=== PATIENT | male | born 1935 | race Caucasian/White ===

== ENCOUNTER → 2020-08-16 11:37 | Outpatient (CLI) | payer MEDICARE, OTHER, SELFPAY ==
[2020-08-16 20:34] LABS: Alanine Aminotransferase 26 IU/L (<50); Albumin 4.2 g/dL (3.5-5.0); Albumin Globulin Ratio 1.5 (1.0-2.8); Alkaline Phosphatase 56 U/L (38-126); Aspartate Aminotransferase 31 IU/L (17-59); BUN Creatinine Ratio 13.3 (6-22); Bilirubin Total 0.9 mg/dL (0.2-1.3); Blood Urea Nitrogen 17 mg/dL (9-20); Calcium 9.6 mg/dL (8.4-10.2); Carbon Dioxide 25 mmol/L (22-32); Chloride 102 mmol/L (98-107); Cholesterol 221 mg/dL (140-199); Estimated Glomerular Filt Rate 53.8 mL/min (>60); Globulin 2.8 g/dL (1.7-4.1); Glucose 108 mg/dL (80-110); HDL Cholesterol 68 mg/dL (40-60); HEMOLYSIS < 15 (0-50); LDL Cholesterol Calculated 135 mg/dL (<100); Potassium 4.6 mmol/L (3.4-5.1); Sodium 136 mmol/L (137-145); Triglycerides 88 mg/dL (35-150)
[2020-08-16 20:37] LABS: Add Manual Diff / Slide Review NO; Basophils Absolute Auto 100 /uL (0-100); Basophils Percent Auto 0.7 % (0-2); Eosinophils Absolute Auto 300 /uL (0-450); Eosinophils Percent Auto 3.6 % (2-4); Hematocrit 48.6 % (41-53); Hemoglobin 16.5 g/dL (13.5-17.5); Lymphocytes Absolute Auto 1900 /uL (1100-4500); Lymphocytes Percent Auto 26.1 % (25-40); Mean Corpuscular Hemoglobin 32.1 PG (26-34); Mean Corpuscular Volume 94.6 fL (80-100); Monocytes Absolute Auto 800 /uL (0-900); Monocytes Percent Auto 11.4 % (3-14); Neutrophils Absolute Auto 4300 /uL (1500-7000); Neutrophils Percent Auto 58.2 % (50-75); Platelet Count 147 X10^3/uL (150-400); Red Blood Cell Count 5.14 X10^6/uL (4.5-5.9); Red Cell Distribution Width 13.1 % (11.6-14.8); White Blood Cell Count 7.3 X10^3/uL (4.5-11.0)
[2020-08-16 21:04] LABS: Thyroid Stimulating Hormone 1.25 uIU/mL (0.47-4.68)
== END ==
PROVIDERS: Internal Medicine Cardiovascular Disease; Family Provider Internal Medicine Cardiovascular Disease
DX: E78.5 Hyperlipidemia, unspecified (principal); I10 Essential (primary) hypertension; I48.91 Unspecified atrial fibrillation
CPT/HCPCS: 80053; 80061; 84443; 85025

== ENCOUNTER → 2021-10-05 11:00 | Outpatient (CLI) | payer MEDICARE, SELFPAY ==
[2021-10-06 18:18] LABS: Add Manual Diff / Slide Review NO; Basophils Absolute Auto 100 /uL (0-100); Eosinophils Absolute Auto 200 /uL (0-450); Eosinophils Percent Auto 2.8 % (2-4); Hematocrit 45.6 % (41-53); Hemoglobin 15.9 g/dL (13.5-17.5); Lymphocytes Absolute Auto 1900 /uL (1100-4500); Lymphocytes Percent Auto 26.3 % (25-40); Mean Corpuscular Hemoglobin 32.5 PG (26-34); Mean Corpuscular Volume 92.9 fL (80-100); Monocytes Absolute Auto 700 /uL (0-900); Neutrophils Absolute Auto 4400 /uL (1500-7000); Neutrophils Percent Auto 59.9 % (50-75); Platelet Count 149 X10^3/uL (150-400); Red Blood Cell Count 4.91 X10^6/uL (4.5-5.9); White Blood Cell Count 7.3 X10^3/uL (4.5-11.0)
[2021-10-06 18:37] LABS: Alanine Aminotransferase 27 IU/L (<50); Albumin Globulin Ratio 1.5 (1.0-2.8); Alkaline Phosphatase 49 U/L (38-126); Aspartate Aminotransferase 27 IU/L (17-59); BUN Creatinine Ratio 17.9 (6-22); Blood Urea Nitrogen 24 mg/dL (9-20); Calcium 9.2 mg/dL (8.4-10.2); Carbon Dioxide 19 mmol/L (22-32); Chloride 104 mmol/L (98-107); Cholesterol 125 mg/dL (140-199); Estimated Glomerular Filt Rate 53 mL/min (>60); Globulin 2.6 g/dL (1.7-4.1); Glucose 104 mg/dL (80-110); HDL Cholesterol 46 mg/dL (40-60); HEMOLYSIS < 15 (0-50); LDL Cholesterol Calculated 65 mg/dL (<100); Potassium 4.6 mmol/L (3.4-5.1); Sodium 136 mmol/L (137-145); Total Protein 6.6 g/dL (6.3-8.2); Triglycerides 71 mg/dL (35-150)
[2021-10-06 18:49] LABS: Hemoglobin A1C% w Est Avg Glu 5.8 % (4.0-6.0)
[2021-10-06 19:08] LABS: Thyroid Stimulating Hormone 1.01 uIU/mL (0.47-4.68)
== END ==
PROVIDERS: Internal Medicine Cardiovascular Disease; Family Provider Internal Medicine Cardiovascular Disease; PCP Family Medicine
DX: Z79.899 Other long term (current) drug therapy (principal)
CPT/HCPCS: 80053; 80061; 83036; 84443; 85025

== ENCOUNTER → 2021-11-07 07:38 | Outpatient (CLI) | payer MEDICARE, SELFPAY ==
[2021-11-07 20:25] LABS: Add Manual Diff / Slide Review NO; Basophils Absolute Auto 100 /uL (0-100); Basophils Percent Auto 0.9 % (0-2); Eosinophils Absolute Auto 400 /uL (0-450); Eosinophils Percent Auto 3.8 % (2-4); Hematocrit 46.2 % (41-53); Lymphocytes Absolute Auto 2200 /uL (1100-4500); Lymphocytes Percent Auto 22.5 % (25-40); Mean Corpuscular HGB Conc 34.6 % (30-36); Mean Corpuscular Volume 92.4 fL (80-100); Monocytes Absolute Auto 900 /uL (0-900); Neutrophils Absolute Auto 6200 /uL (1500-7000); Neutrophils Percent Auto 63.8 % (50-75); Platelet Count 145 X10^3/uL (150-400); Red Blood Cell Count 5.01 X10^6/uL (4.5-5.9); Red Cell Distribution Width 13.2 % (11.6-14.8); White Blood Cell Count 9.7 X10^3/uL (4.5-11.0)
[2021-11-07 20:28] LABS: Blood Urea Nitrogen 21 mg/dL (9-20); Carbon Dioxide 25 mmol/L (22-32); Chloride 103 mmol/L (98-107); Estimated Glomerular Filt Rate 54 mL/min (>60); Glucose 99 mg/dL (80-110); HEMOLYSIS < 15 (0-50); Potassium 4.8 mmol/L (3.4-5.1); Sodium 136 mmol/L (137-145)
[2021-11-07 21:49] LABS: COVID19 - ORCAS (NP or Nasal) Negative (Negative)
== END ==
PROVIDERS: Family Provider Internal Medicine Cardiovascular Disease; PCP Family Medicine; Visit Provider Family Medicine
DX: I25.810 Atherosclerosis of coronary artery bypass graft(s) without angina pectoris (principal); Z01.812 Encounter for preprocedural laboratory examination; Z20.822 Contact with and (suspected) exposure to COVID-19
CPT/HCPCS: 80048; 85025; C9803; U0003

== ENCOUNTER → 2022-09-13 11:23 | Outpatient (CLI) | payer MEDICARE, SELFPAY ==
[2022-09-13 20:23] LABS: Alanine Aminotransferase 26 IU/L (<50); Albumin 3.7 g/dL (3.5-5.0); Albumin Globulin Ratio 1.3 (1.0-2.8); Alkaline Phosphatase 63 U/L (38-126); Aspartate Aminotransferase 26 IU/L (17-59); Bilirubin Total 0.8 mg/dL (0.2-1.3); Blood Urea Nitrogen 24 mg/dL (9-20); Calcium 8.7 mg/dL (8.4-10.2); Carbon Dioxide 23 mmol/L (22-32); Chloride 105 mmol/L (98-107); Cholesterol 122 mg/dL (140-199); Estimated Glomerular Filt Rate 56 mL/min (>60); Globulin 2.8 g/dL (1.7-4.1); Glucose 112 mg/dL (80-110); HDL Cholesterol 44 mg/dL (40-60); HEMOLYSIS < 15 (0-50); LDL Cholesterol Calculated 65 mg/dL (<100); Potassium 4.8 mmol/L (3.4-5.1); Sodium 134 mmol/L (137-145); Total Protein 6.5 g/dL (6.3-8.2); Triglycerides 63 mg/dL (35-150)
[2022-09-13 20:30] LABS: Add Manual Diff / Slide Review NO; Basophils Absolute Auto 100 /uL (0-100); Eosinophils Absolute Auto 200 /uL (0-450); Eosinophils Percent Auto 3.2 % (2-4); Hematocrit 45.7 % (41-53); Hemoglobin 15.9 g/dL (13.5-17.5); Lymphocytes Absolute Auto 1900 /uL (1100-4500); Lymphocytes Percent Auto 26.1 % (25-40); Mean Corpuscular HGB Conc 34.8 % (30-36); Mean Corpuscular Hemoglobin 32.3 PG (26-34); Mean Corpuscular Volume 92.8 fL (80-100); Monocytes Absolute Auto 800 /uL (0-900); Monocytes Percent Auto 11.2 % (3-14); Neutrophils Absolute Auto 4400 /uL (1500-7000); Neutrophils Percent Auto 58.5 % (50-75); Platelet Count 114 X10^3/uL (150-400); Red Blood Cell Count 4.92 X10^6/uL (4.5-5.9); Red Cell Distribution Width 13.3 % (11.6-14.8); White Blood Cell Count 7.5 X10^3/uL (4.5-11.0)
[2022-09-13 20:53] LABS: TSH w/ Reflex to FT4 1.04 uIU/mL (0.47-4.68)
[2022-09-13 21:28] LABS: PTT Partial Thromboplastin Tim 32 SECONDS (26-36)
== END ==
PROVIDERS: Family Provider Internal Medicine Cardiovascular Disease; PCP Family Medicine; Visit Provider Family Medicine
DX: I25.810 Atherosclerosis of coronary artery bypass graft(s) without angina pectoris (principal); I65.23 Occlusion and stenosis of bilateral carotid arteries; I10 Essential (primary) hypertension; I25.10 Atherosclerotic heart disease of native coronary artery without angina pectoris; I38 Endocarditis, valve unspecified; I65.29 Occlusion and stenosis of unspecified carotid artery; Z95.0 Presence of cardiac pacemaker; Z95.5 Presence of coronary angioplasty implant and graft; Z98.890 Other specified postprocedural states
CPT/HCPCS: 80053; 80061; 84443; 85025; 85730

== ENCOUNTER → 2022-09-17 14:33 | Outpatient (CLI) | payer MEDICARE, SELFPAY ==
--- NOTE | 2022-09-17 | DI.ECHO.S_ITS ---
[facility]---------+ [facility] +---------+ : : [address] : [address] : : : : [id number] : : : : Phone: [phone]---------+ Echocardiogram Report + + :Name: ANDRESSA BARDALES Study Date: 09/17/2022 Height: 70 in : :[facility] ReadingLocation: Weight: 172 lb : : Gender: Male BSA: 2.0 m2 : :: 1935 Age: 86 yrs BP: 123/59 mmHg: :Reason For Study: Other forms of Dyspnea : :Ordering Physician: SAMINA : :MARYSOL Performed By: Jocelynn Romeo : :Referring: MARYSOL HAAS : + + Interpretation Summary The left ventricle is mildly dilated. The ejection fraction is estimated to be 40-45%. There is a severe hypokinesis to akinesis of inferior wall extending into the basal to mid inferior lateral wall as well as hypokinetic basal to mid inferoseptum. LV dyssynchrony seen as well. The right ventricle is normal size. Right ventricular systolic function is mildly reduced. There is a pacemaker lead in the right ventricle. There is mild mitral regurgitation. There is mild aortic regurgitation. There is mild tricuspid regurgitation. Right ventricular systolic pressure is estimated to be 28 mmHg plus the clinically estimated CVP which cannot be estimated on this exam. Procedure: A two-dimensional transthoracic echocardiogram with color flow and Doppler was performed. The study quality was technically adequate. There is no prior echocardiogram noted for this patient. A contrast injection of Definity was performed to improve assessment of LV function. The patient has a paced rhythm. Left Ventricle: The left ventricle is mildly dilated. Proximal septal thickening is noted. There is no thrombus. The ejection fraction is estimated to be 40-45%. There is a severe hypokinesis to akinesis of inferior wall extending into the basal to mid inferior lateral wall as well as hypokinetic basal to mid inferoseptum. LV dyssynchrony seen as well. MV E/A: 0.42 Med Peak E' Lyle: 3.0 cm/sec E/E' med: 15.4. Right Ventricle: The right ventricle is normal size. There is a pacemaker lead in the right ventricle. Right ventricular systolic function is mildly reduced. Atria: The left atrial size is normal. Right atrial size is normal. There is no Doppler evidence for an interatrial shunt. Mitral Valve: The mitral valve leaflets appear mildly thickened, but open well. There is no mitral valve stenosis. There is mild mitral regurgitation. Aortic Valve: The aortic valve is trileaflet. There is moderate aortic valve sclerosis. There is discrete nodular thickening of the non- coronary cusp. There is mildly reduced leaflet mobility. There is no aortic valve stenosis. There is mild aortic regurgitation. Tricuspid Valve: The tricuspid valve is normal. There is no tricuspid stenosis. There is mild tricuspid regurgitation. Right ventricular systolic pressure is estimated to be 28 mmHg plus the clinically estimated CVP which cannot be estimated on this exam. Pulmonic Valve: The pulmonic valve leaflets are thin and pliable; valve motion is normal. There is no pulmonic valvular stenosis. There is trace pulmonic regurgitation. Great Vessels: The aortic root is normal size. The ascending aorta is normal in size. The pulmonary artery is normal size. The inferior vena cava was not well visualized. Pericardium/ Pleura There is no pericardial effusion. There is no pleural effusion. MMode/2D Measurements & Calculations LVIDd: 5.0 cm LVOT diam: 2.0 cm LVIDs: 4.3 cm Ao root diam: 3.0 cm FS: 14.0 % asc Aorta Diam: 3.4 cm IVSd: 1.2 cm LVPWd: 1.0 cm LV gonzales. diameter/BSA (cm/m^2): 2.6 LV sys. diameter/BSA (cm/m^2): 2.2 LA A2 area: 15.8 cm2 RA long axis: 4.5 cm LA A4 area: 14.2 cm2 RA area: 10.8 cm2 LA length (vol): 5.9 cm RA vol: 22.1 ml LA vol: 32.1 ml RA : 11.3 ml/m2 LA vol index: 16.4 ml/m2 RVD1 (basal): 3.2 cm LVAd ap4: 35.5 cm2 LVAs ap4: 30.6 cm2 LVLs ap4: 6.4 cm LVAd ap2: 33.1 cm2 TAPSE_phl: 1.4 cm LVLd ap2: 7.1 cm LVAs ap2: 26.2 cm2 LVLs ap2: 6.1 cm Doppler Measurements & Calculations Ao V2 max: 132.0 cm/sec LVOT Max Lyle: 81.6 cm/sec Ao V2 mean: 96.2 cm/sec LV V1 max P.7 mmHg Ao max P.0 mmHg LV V1 VTI: 16.9 cm Ao mean P.0 mmHg JEREMIAH(I,D): 1.8 cm2 Ao V2 VTI: 29.1 cm JEREMIAH(V,D): 1.9 cm2 sev ratio: 0.58 JEREMIAH indexed to BSA (cm^2/m^2): 0.93 MV E max lyle: 46.1 cm/sec TR max lyle: 264.0 cm/sec MV A max lyle: 109.0 cm/sec TR max P.9 mmHg MV E/A: 0.42 PA V2 max: 78.1 cm/sec Med Peak E' Lyle: 3.0 cm/sec PA V2 mean: 53.6 cm/sec E/E' med: 15.4 PA mean P.0 mmHg Lat Peak E' Lyle: 3.6 cm/sec PA pr(Accel): 34.9 mmHg E/E' lat: 12.9 E/e' average: 14.1 MV dec time: 0.24 sec SV(LVOT): 53.1 ml AV VR_phl: 0.62 JEREMIAH(VTI)/BSA_phl: 0.93 MV P1/2t-pr_phl: 72.0 msec Reading Physician:05:40 PM
== END ==
PROVIDERS: Family Provider Internal Medicine Cardiovascular Disease; PCP Family Medicine; Referring Provider Family Medicine; Visit Provider Family Medicine
DX: R06.09 Other forms of dyspnea; I08.3 Combined rheumatic disorders of mitral, aortic and tricuspid valves; Z95.5 Presence of coronary angioplasty implant and graft
CPT/HCPCS: 93306; Q9957

== ENCOUNTER → 2022-10-16 13:17 | Outpatient (CLI) | payer MEDICARE, SELFPAY ==
[2022-10-16 20:27] LABS: Add Manual Diff / Slide Review NO; Basophils Absolute Auto 100 /uL (0-100); Basophils Percent Auto 0.9 % (0-2); Eosinophils Absolute Auto 400 /uL (0-450); Eosinophils Percent Auto 3.9 % (2-4); Hematocrit 49.1 % (41-53); Hemoglobin 17.1 g/dL (13.5-17.5); Lymphocytes Absolute Auto 2100 /uL (1100-4500); Lymphocytes Percent Auto 22.9 % (25-40); Mean Corpuscular HGB Conc 34.8 % (30-36); Mean Corpuscular Hemoglobin 32.5 PG (26-34); Mean Corpuscular Volume 93.5 fL (80-100); Monocytes Absolute Auto 800 /uL (0-900); Monocytes Percent Auto 9.4 % (3-14); Neutrophils Absolute Auto 5700 /uL (1500-7000); Neutrophils Percent Auto 62.9 % (50-75); Platelet Count 125 X10^3/uL (150-400); Red Blood Cell Count 5.25 X10^6/uL (4.5-5.9); Red Cell Distribution Width 13.3 % (11.6-14.8)
[2022-10-16 21:01] LABS: BUN Creatinine Ratio 21.3 (6-22); Blood Urea Nitrogen 29 mg/dL (9-20); Calcium 9.3 mg/dL (8.4-10.2); Carbon Dioxide 26 mmol/L (22-32); Chloride 102 mmol/L (98-107); Estimated Glomerular Filt Rate 51 mL/min (>60); Glucose 128 mg/dL (80-110); HEMOLYSIS 16 (0-50); Potassium 4.6 mmol/L (3.4-5.1); Sodium 136 mmol/L (137-145)
== END ==
PROVIDERS: Family Provider Internal Medicine Cardiovascular Disease; PCP Family Medicine; Visit Provider Family Medicine
DX: I25.810 Atherosclerosis of coronary artery bypass graft(s) without angina pectoris (principal); D69.6 Thrombocytopenia, unspecified; E87.1 Hypo-osmolality and hyponatremia; N18.31 Chronic kidney disease, stage 3a
CPT/HCPCS: 80048; 85025

== ENCOUNTER → 2023-09-02 09:53 | Outpatient (CLI) | payer MEDICARE, SELFPAY ==
[2023-09-02 19:50] LABS: Add Manual Diff / Slide Review NO; Basophils Absolute Auto 100 /uL (0-100); Basophils Percent Auto 0.7 % (0-2); Eosinophils Absolute Auto 200 /uL (0-450); Eosinophils Percent Auto 2.1 % (2-4); Hematocrit 45.9 % (41-53); Hemoglobin 15.9 g/dL (13.5-17.5); Lymphocytes Absolute Auto 1600 /uL (1100-4500); Lymphocytes Percent Auto 19.2 % (25-40); Mean Corpuscular HGB Conc 34.7 % (30-36); Mean Corpuscular Hemoglobin 32.3 PG (26-34); Mean Corpuscular Volume 93.1 fL (80-100); Monocytes Absolute Auto 700 /uL (0-900); Monocytes Percent Auto 8.9 % (3-14); Neutrophils Absolute Auto 5700 /uL (1500-7000); Neutrophils Percent Auto 69.1 % (50-75); Platelet Count 101 X10^3/uL (150-400); Red Blood Cell Count 4.92 X10^6/uL (4.5-5.9); Red Cell Distribution Width 13.2 % (11.6-14.8); White Blood Cell Count 8.2 X10^3/uL (4.5-11.0)
[2023-09-02 19:59] LABS: Alanine Aminotransferase 34 IU/L (<50); Albumin 3.8 g/dL (3.5-5.0); Albumin Globulin Ratio 1.7 (1.0-2.8); Alkaline Phosphatase 67 U/L (38-126); Aspartate Aminotransferase 34 IU/L (17-59); BUN Creatinine Ratio 18.4 (6-22); Bilirubin Total 0.7 mg/dL (0.2-1.3); Blood Urea Nitrogen 25 mg/dL (9-20); Calcium 8.7 mg/dL (8.4-10.2); Carbon Dioxide 26 mmol/L (22-32); Chloride 106 mmol/L (98-107); Cholesterol 96 mg/dL (140-199); Estimated Glomerular Filt Rate 51 mL/min (>60); Globulin 2.3 g/dL (1.7-4.1); Glucose 106 mg/dL (80-110); HDL Cholesterol 44 mg/dL (40-60); HEMOLYSIS < 15 (0-50); LDL Cholesterol Calculated 37 mg/dL (<100); Potassium 4.5 mmol/L (3.4-5.1); Sodium 137 mmol/L (137-145); Total Protein 6.1 g/dL (6.3-8.2); Triglycerides 73 mg/dL (35-150)
[2023-09-02 20:27] LABS: TSH w/ Reflex to FT4 1.54 uIU/mL (0.47-4.68)
[2023-09-02 20:50] LABS: Vitamin B12 573 pg/mL (239-931)
== END ==
PROVIDERS: Family Provider Internal Medicine Cardiovascular Disease; PCP Family Medicine; Visit Provider Family Medicine
DX: R06.09 Other forms of dyspnea (principal); I11.0 Hypertensive heart disease with heart failure; E78.2 Mixed hyperlipidemia; N18.31 Chronic kidney disease, stage 3a; F32.9 Major depressive disorder, single episode, unspecified; J44.9 Chronic obstructive pulmonary disease, unspecified; Z95.1 Presence of aortocoronary bypass graft; D69.6 Thrombocytopenia, unspecified; I25.10 Atherosclerotic heart disease of native coronary artery without angina pectoris; I10 Essential (primary) hypertension
CPT/HCPCS: 80053; 80061; 82607; 84443; 85025

== ENCOUNTER 2023-10-08 09:57 | Day surgery (SDC) | payer MEDICARE, SELFPAY ==
--- NOTE | 2023-10-08 | DI.CT.S_ITS ---
PROCEDURE: CT SOFT TISSUE NECK W CON INDICATIONS: odonophagia TECHNIQUE: After the administration of intravenous contrast, 3.0 mm axial sections acquired from the sella to the aortic arch. Additional oblique axial 3.0 mm sections acquired through the pharynx. 3 mm thick coronal and sagittal reformats were generated. For radiation dose reduction, the following was used: automated exposure control. COMPARISON: None. FINDINGS: Image quality: Diagnostic Brain: Partially visualized, unremarkable. Orbits: Lens replacements. Mouth and pharynx: There is no discrete mass or fluid collection. Surrounding metallic artifact limits evaluation. Sequelae of dental disease Airway: Patent. Neck spaces: No masses or abscess. No lymphadenopathy. Glands: Unremarkable. No actionable thyroid nodules. Vessels: Atherosclerotic calcifications are present. Upper chest: Pulmonary reticular changes partially seen. No pneumothorax. Moderately patulous esophagus is partially seen Indeterminate 8 mm right upper mediastinal lymph node Sinuses and mastoids: No significant opacification. Bones: Sternotomy wires and degenerative changes. Partially seen cardiac electrode leads and left chest wall pulse generator. 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 IMPRESSION: Moderately patulous esophagus partially seen. No discrete fluid collection or mass identified in the neck. If there is further concern, consider endoscopy follow-up. There is an indeterminate 8 mm right upper mediastinal lymph node Other findings above Dictated by: Latrell Perez M.D. on 10/08/2023 at 12:26 Approved by: Latrell Perez M.D. on 10/08/2023 at 12:31
[2023-10-08 10:21] VITALS: BMI 22.9
--- NOTE | 2023-10-08 10:27 | PM.HP.1 ---
History of Present Illness History of Present Illness Date Patient Seen: 10/08/23 Time Patient Seen: 10:27 Chief complaint: SDC Narrative: 87-year-old man here for diagnostic upper endoscopy. No interval change since last evaluated August 2023. Continues to have throat pain and a sensation that there is a lump in his throat. [facility] Social History household members: spouse Smoking Status: Former smoker alcohol intake: current Meds Home Medications and Allergies Home Medications Medication Instructions Recorded Confirmed Type clopidogrel 75 mg tablet 75 mg PO DAILY 07/19/21 08/29/23 History cholecalciferol (vitamin D3) 125 125 mcg PO DAILY 07/21/21 08/29/23 History mcg (5,000 unit) capsule atorvastatin 40 mg tablet 40 mg PO DAILY 07/03/23 08/29/23 History isosorbide dinitrate 20 mg tablet 20 mg PO BID 07/03/23 08/29/23 History olanzapine 5 mg tablet mg PO 07/03/23 08/29/23 History umeclidinium 62.5 mcg/actuation 1 inh inhalation DAILY #30 ea 08/09/23 08/29/23 Rx blister powder for inhalation (Incruse Ellipta) gabapentin 300 mg capsule 300 mg PO BEDTIME #90 caps 09/03/23 Rx propranolol 10 mg tablet 10 mg PO TID #90 tabs 09/12/23 09/12/23 Rx sertraline 100 mg tablet (Zoloft) 200 mg (2 x 100 mg) PO DAILY #180 09/12/23 09/12/23 Rx tabs zolpidem 5 mg tablet 5 mg PO BEDTIME PRN insomnia #90 09/12/23 09/12/23 Rx tabs Allergies Allergy/AdvReac Type Severity Reaction Status Date / Time alprazolam [From Xanax] Allergy Intermediate Verified 08/29/23 09:51 Exam Narrative Exam Narrative: General adult man alert oriented no acute distress Chest nonlabored respiration Extremities warm well perfused Assessment & Plan Assessment and plan (1) Odynophagia: Status: Acute Assessment & Plan narrative: 87-year-old man with odynophagia here for diagnostic esophagogastroduodenoscopy. Overview of procedure risks benefits and alternatives reviewed. Provides his written and verbal consent to proceed. Time-Based Coding :: [TOTAL MINUTES] spent with patient and on the chart (including review of chart, obtaining history, exam, reviewing outside data, placing orders, documenting exam and treatment plan, and counseling patient) on [DATE].
[2023-10-08 10:34] VITALS: BP 151/81; PULSE 80; RESP 18; TEMP 36.1; O2SAT 95
[2023-10-08] MEDS: LACTATED RINGERS 1,000 ML 42 ML IV (10:35)
--- NOTE | 2023-10-08 10:58 | P.OP.EGD_ITS ---
Operative Date/Time/Diagnoses Date of procedure: 10/08/23 Time of procedure: 10:58 Pre-op diagnosis: Odynophagia Procedure & Clinicians Study performed: Diagnostic esophagogastroduodenoscopy Same procedure as scheduled: Yes Indications: Odynophagia, normal barium swallow study Surgeon: Michael Sanders Procedure Notes Procedure in detail: The history and physical was performed/updated and the patient is ASA class is 3. The procedure was discussed in detail with the patient. Potential risks complications including infection, bleeding, missed diagnosis, perforation, need for surgery, and were explained. Their questions were answered and informed consent was obtained. Patient placed in left lateral decubitus position. Time out was performed. Procedural sedation was administered by Anesthesia. A bite block was placed. the scope was inserted into the mouth and advanced through the esophagus and into the stomach. The pylorus was intubated and the duodenum was examined to the 2nd portion. The scope was then withdrawn into the stomach and was retrof lexed. The stomach was decompressed and scope was withdrawn slowly through the esophagus. FINDINGS Unremarkable upper endoscopy. No hiatal hernia. No gastritis, peptic ulcer disease, esophagitis or esophageal mass. The patient tolerated the procedure well and will be discharged when they meet criteria. Specimen(s): none sent Impression: Normal upper endoscopy Post-procedure Plan for aftercare: CT neck Disposition: same day surgery
[2023-10-08 11:09] VITALS: BP 97/56; PULSE 70; RESP 16; TEMP 36.6; O2SAT 95
[2023-10-08 11:15] VITALS: BP 96/57; PULSE 76; RESP 19; O2SAT 96
[2023-10-08 11:21] VITALS: BP 110/52; PULSE 73; RESP 18; TEMP 36.3; O2SAT 95
[2023-10-08 11:22] VITALS: BP 111/64; PULSE 71; RESP 16; O2SAT 95
[2023-10-08 11:50] VITALS: BP 147/73; PULSE 75; RESP 16; TEMP 36.2; O2SAT 95
== END 2023-10-08 11:53 | disposition home or self-care (01) ==
PROVIDERS: Family Provider Internal Medicine Cardiovascular Disease; PCP Family Medicine; Referring Provider Surgery; Visit Provider Surgery
PROC: 0DJ08ZZ Inspection of Upper Intestinal Tract, Via Natural or Artificial Opening Endoscopic (ICD-10-PCS; CPT 43235; principal; 2023-10-08 11:15)
DX: R13.10 Dysphagia, unspecified (principal)
CPT/HCPCS: 43235; 70491; J2704; Q9967